=== PATIENT | male | born 1940 | race Native Hawaiian/Other Pacific Islander ===

== ENCOUNTER 2017-01-03 05:09 | Outpatient (CLI) | payer OTHER, BC | END 2017-01-03 06:10 | disposition home or self-care (01) | LOC: LABW 05:09 | DX: R97.20 Elevated prostate specific antigen [PSA] (principal) | CPT/HCPCS: 36415; 84154 ==

== ENCOUNTER 2017-07-04 05:12 | Outpatient (CLI) | payer OTHER, BC | END 2017-07-04 19:11 | disposition home or self-care (01) | LOC: LABW 05:12 | DX: R97.20 Elevated prostate specific antigen [PSA] (principal) | CPT/HCPCS: 36415; 84154 ==

== ENCOUNTER 2021-08-10 13:20 | Outpatient (CLI) | payer BC | END 2021-08-10 20:28 | disposition home or self-care (01) | LOC: RAD 13:20 | PROVIDERS: ATTEND Physician Assistant | DX: M54.59 Other low back pain (principal) ==